=== PATIENT | male | born 1995 | race Caucasian/White ===

== ENCOUNTER 2017-07-06 01:03 | Emergency (ER) | payer OTHER, SELFPAY ==
--- NOTE | 2017-07-06 00:50 | CT_ITS ---
STUDY: CT BRAIN WITHOUT CONTRAST REASON FOR EXAM: Unknown, 22 years old. DIZZINESS TODAY WITH [place]NAN AND BLURRED VISION RADIATION DOSAGE (If Supplied By Facility): CTDIvol = ( 44.99 ) mGy, DLP = ( 745.49 ) mGycm TECHNIQUE: Transaxial CT imaging of the brain was performed without administration of intravenous contrast material. Individualized dose optimization techniques were used for this CT. COMPARISON: None. FINDINGS: Normal soft tissue structures. Normal calvarium. Normal size ventricles and extra-axial spaces for the patient's age. Normal white matter tracts of the cerebral hemispheres. Normal basal ganglia and thalami. Normal brainstem. Normal cerebellum. There is no intracranial hemorrhage. There are no findings of an acute ischemic infarction. There is a mucosal retention cyst in the right maxillary sinus. CT/Brain/Head without Contrast IMPRESSION: Normal unenhanced CT scan of the brain. Electronically Signed: Lou Plaza MD at 2:53 EDT Tel , Service support ,
[2017-07-06 02:45] LABS: Glucose 102 mg/dL (74-106)
[2017-07-06 02:46] LABS: Anion Gap 7 (5-15); BUN 11 mg/dL (7-18); BUN/Creat Ratio 10.3 RATIO (10-20); Calcium,Total 8.6 mg/dL (8.5-10.1); Chloride 107 mmol/L (98-107); Creatinine, Serum 1.07 mg/dL (0.70-1.30); EST Glomerular Filtration Rate 93 mL/min (>60); Est Glom Filt Rate - Afr Amer 113 mL/min (>60); Potassium 3.7 mmol/L (3.5-5.1); Sodium Level 141 mmol/L (136-145)
[2017-07-06 02:50] LABS: Absolute Neutrophil Count 5.8 X10^3/uL (2.0-7.7); Basophil# 0.03 X10^3/uL; Basophil% 0.3 % (0-1); Eosinophil# 0.29 X10^3/uL; Eosinophils% 3.2 % (0-5); Hematocrit 42.5 % (40-54); Hemoglobin 15.4 g/dl (13.0-16.5); Lymphocyte % 27.2 % (19-41); Mean Corp Hgb Conc 36.2 g/gl (32-36); Mean Corpuscular Hgb 30.5 pg (27.0-32.0); Mean Corpuscular Volume 84.2 fL (80-94); Mean Platelet Vol. 8.8 fl (6.2-12.0); Monocyte# 0.51 X10^3/uL; Monocyte% 5.6 % (0-10); Neutrophil # 5.83 X10^3/uL (2.7-7.7); Neutrophil % 63.5 % (47-70); POSITIVE COUNT NO; POSITIVE DIFFERENTIAL NO; POSITIVE MORPHOLOGY NO; Platelet Count 195 K/mm3 (150-450); RBC Distribution Width CV 12.7 % (11.6-14.6); RBC Distribution Width SD 38.2 fl (35.1-43.9); Red Blood Count 5.05 M/mm3 (4.6-6.2); White Blood Count 9.2 K/mm3 (4.4-11.0)
--- NOTE | 2017-07-06 03:01 | ED.RN ---
TRIAGE AND SECONDARY CHARTED ON DOWNTIME PAPER WORK.
--- NOTE | 2017-07-06 03:04 | ED.DCSUM_ITS ---
- ER Visit Summary Date of Service: 07/06/17 Chief Complaint: [Dizziness] History of Present Illness: The patient is a 22 M [who presents to the emergency department with dizziness. He describes it as room spinning when he lays back or sits up. It is associated with nausea. No chest pain or shortness of breath. No numbness or tingling. He did have a nosebleed a couple of days ago from the left nares he has been having nasal congestion. He is otherwise healthy and takes no medications. No fevers or chills. No head injuries. No numbness tingling or balance disturbances no ear pain] Physical Examination: [] Blood pressure slightly elevated other vitals within normal limits WN WD NAD PERRL EOMI MMM Serous otitis bilaterally Erythematous swollen nasal turbinates bilaterally Mild tenderness to palpation over the maxillary sinuses bilaterally NECK supple and nontender, no masses RRR no murmur rub or gallop, no peripheral edema, symmetric radial pulses CTAB no respiratory distress ABDOMEN is soft and nontender, normal bowel sounds, no distension, no rebound or guarding SKIN is warm and dry no rashes Alert and Oriented x3, CN II-XII in tact, no motor or sensory deficits, gait normal, [place] is positive to the right. There is mild horizontal nystagmus Patient is ambulatory without difficulty No lymphadenopathy Test Results: [] Emergency Department Course and Treatment: [Given fluids Valium meclizine and Zofran. He did improve while in the emergency department. Screening labs were unremarkable. CT of the head is pending. Feels improved. CT the head was unremarkable. He will be given Decadron here as well as meclizine and Zofran for home. He was given precautions for which to return and will follow up with his primary care doctor] Treatment Plan: [] Disposition: [Discharge] Impression: [Vertigo, sinus congestion] This note was generated with [employer] dictation software. It may contain incorrect words, spelling, and punctuation that were not noted in review of the chart prior to signing ED Disposition - Plan for ED Patient: Chief Complaint: Dizziness Referrals: Ron Grijalva DO [Primary Care Provider] -
--- NOTE | 2017-07-06 03:15 | ED.DEP ---
ED Disposition - Plan for ED Patient: Chief Complaint: Dizziness Instructions: ED Vertigo Unspecified, ED Sinusitis No Abx Prescriptions: Ondansetron [Zofran Odt] 4 mg PO Q8H PRN PRN #10 tablet PRN Reason: Nausea Meclizine HCl [Antivert] 25 mg PO 4X/DAY PRN PRN #20 tablet PRN Reason: Dizziness Referrals: Ron Grijalva DO [Primary Care Provider] - 3-5 Days
[2017-07-06 03:25] VITALS: BP 146/87; PULSE 66; RESP 18; O2SAT 98
[2017-07-06 03:26] VITALS: BMI 33.9
--- NOTE | 2017-07-06 03:26 | NURSING ---
see down time form
== END 2017-07-06 03:31 | disposition home or self-care (01) ==
LOC: ED 02:44
PROVIDERS: Emergency Provider Emergency Medicine; Family Provider Student in an Organized Health Care Education/Training Program; PCP Student in an Organized Health Care Education/Training Program
DX: R42 Dizziness and giddiness (principal); R09.81 Nasal congestion; H65.93 Unspecified nonsuppurative otitis media, bilateral
CPT/HCPCS: 70450; 80048; 85025; 99282; J7030; A4216

== ENCOUNTER 2019-06-16 20:24 | Emergency (ER) | payer OTHER, SELFPAY ==
[2019-06-16 20:24] VITALS: BP 129/72; PULSE 86; RESP 15; TEMP 36.6; O2SAT 99; BMI 29.4
--- NOTE | 2019-06-16 20:45 | RAD_ITS ---
STUDY: X-RAY - LEFT RADIUS AND ULNA REASON FOR EXAM: Male, 24 years old. FALL, WRIST PAIN/DEFORMITY TECHNIQUE: 2 view(s) of the forearm. COMPARISON: None. FINDINGS: Comminuted intra-articular fracture of the distal radius. Nondisplaced fracture of the ulnar styloid. Soft tissue swelling. Proximal radius and ulna are intact. RAD/Forearm 2 Views IMPRESSION: Comminuted intra-articular fracture of the distal radius. Electronically Signed: Mehran Aparicio MD at 22:00 EDT Tel , Service support ,
--- NOTE | 2019-06-16 20:45 | RAD_ITS ---
STUDY: X-RAY - LEFT WRIST REASON FOR EXAM: Male, 24 years old. FALL, WRIST PAIN/DEFORMITY TECHNIQUE: 3 view(s) of the wrist were obtained. COMPARISON: None. FINDINGS: Comminuted intra-articular fracture of the distal radius. Fracture of the ulnar styloid. Carpal rows are normally aligned. Soft tissue swelling. RAD/Wrist min 3 Views IMPRESSION: Comminuted intra-articular fracture of the distal radius. Fracture of the ulnar styloid. Electronically Signed: Mehran Aparicio MD at 21:58 EDT Tel , Service support ,
--- NOTE | 2019-06-16 20:47 | ED.DCSUM_ITS ---
History of Present Illness Chief Complaint: Upper Extremity Injury Informant: Patient Occurred: Today Mechanism/Context: Fall Onset: Today Context: Sudden Onset Timing: Continuous Quality of Pain: Sharp Narrative: Patient is a 24-year-old male no past medical history presenting with left wrist deformity and pain. Patient was skateboarding when he fell and caught himself with his left hand. He had immediate pain. He did not hit his head. He had no loss of consciousness. No other injuries. Does not have an orthopedist. States he is never broken a bone. This happened just prior to arrival. No radiation of pain. Pain is severe. Did not take anything for pain prior to arrival. No associated numbness or tingling. Patient also landed on his left knee and sustained an abrasion. Past Medical History - Allergies and Home Meds Allergies/Adverse Reactions: Allergies No Known Allergies Allergy (Verified 06/16/19 20:27) Primary Care Physician: Ron Grijalva DO [Primary Care Provider] - Past Medical History: None Surgical History: no surgical history Smoking Status: Never smoker Review of Systems General: Denies: Chills, Fever, Sweats Eyes: Denies: Visual changes - bilaterally, Diplopia ENT: Denies: Rhinorrhea, Sore throat Cardiovascular: Denies: Chest pain, Palpitations Respiratory: Denies: Dyspnea, Cough, Dyspnea on exertion Gastrointestinal: Denies: Abdominal pain, Nausea, Vomiting, Diarrhea, Melena, Hematochezia Genitourinary: Denies: Dysuria, Hematuria, Frequency Musculoskeletal: Reports: Extremity Pain - left wrist . Denies: Back pain Skin: Reports: Abrasions - left knee . Denies: Rash, Wounds Neurological: Denies: Headache, Weakness, Numbness Physical Exam Vital Signs/Narrative: Vital Signs Temp Pulse Resp BP Pulse Ox 06/16/19 20:24 97.9 F 86 15 129/72 H 99 Lower extremities: normal range of motion, no effusions, normal range of motion Inital Vital Signs reviewed: Yes Left Shoulder: Negative for: Deformity, Hematoma, Limited ROM Left Humerus: Negative for: Deformity, Edema, Hematoma, Limited ROM Left Elbow: Negative for: Deformity, Edema, Hematoma, Limited ROM Left Forearm: Deformity - distal/radial aspect, Edema, Limited ROM, - - Tendereness to palpation of the distal radius. Negative for: Abrasion, Contusion, Hematoma Left Wrist: Deformity, Edema, Limited ROM. Negative for: Abrasion, Contusion, Hematoma Left Hand: Negative for: Deformity, Edema, Hematoma, Limited ROM Left Finger: Negative for: Limited ROM General: Well nourished, Well developed Head: Normocephalic, Atraumatic Eyes: Perrl, EOMI ENT: No Trauma, Moist Mucous Membranes Neck: Nontender, Full ROM Cardiovascular: Regular rate, Regular rhythm, No murmurs Respiratory: No distress, CTA bilaterally, Chest nontender Back: Nontender Skin: Normal color, No rash, Trauma - 3 cm superficial circumferential abrasion to the left lateral knee Neurological: Alert, Oriented x3, Cranial nerves II-XII grossly intact, Normal Strength, Normal Sensation Psychological: Normal affect Diagnostic/Tx/Re-eval Clinical Impression(s) from Imaging Studies Forearm X-Ray 06/16/19 20:45 IMPRESSION: Comminuted intra-articular fracture of the distal radius. Electronically Signed: Mehran Aparicio MD at 22:00 EDT Tel , Service support , Wrist X-Ray 06/16/19 20:45 IMPRESSION: Comminuted intra-articular fracture of the distal radius. Fracture of the ulnar styloid. Electronically Signed: Mehran Aparicio MD at 21:58 EDT Tel , Service support , - Medical Decision Making Patient has a closed fracture of his left distal radius and ulnar styloid process. He has an obvious deformity. He is given IM morphine for pain control. X-ray confirms fracture. Reduction performed and fabricated splinting with Ortho-Glass. See procedure note. Case discussed with orthopedics on-call who is agreeable with outpatient follow-up. Patient discharged home with a short course of [place] for pain control. He is also tried to take ibuprofen as needed. He is counseled on splint care. Patient is counseled on signs and symptoms requiring return to the emergency room. Patient verbalizes agreement and understand this plan. Patient discharged home in stable and improved condition. Procedures Procedure(s): Closed reduction. Informed consent obtained verbally. Patient neuro vastly intact. Hematoma block performed using sterile technique with chlorhexidine, 22-gauge needle and 10 cc of 0.5% bupivacaine. Patient placed in finger traction 15 minutes prior to procedure. C arm used to help guide procedure. Close reduction using traction/countertraction and dorsal pressure used for reduction. Satisfactory reduction obtained. Patient neurovascular intact with brisk capillary refill distally. He is placed in a sugar tong splint. Patient tolerated procedure well with no immediate complications. ED Disposition - Plan for ED Patient: Disposition: Home or Assisted Living Diagnosis: Closed fracture of left distal radius, Closed fracture of styloid process of left ulna Instructions: ED Fx Colles Wrist Redu Requ Prescriptions: Hydrocodone Bitart/Apap 5-325 [[place] 5MG-325MG] 1 tab PO Q6H PRN PRN 3 Days #12 tab PRN Reason: Pain Prescription Printed Referrals: Ron Grijalva DO [Primary Care Provider] - Theodore Irvin DO [STAFF PHYSICIAN] -
[2019-06-16] MEDS: Morphine 4 MG/ML Syringe IV (21:34)
--- NOTE | 2019-06-16 22:13 | RAD_ITS ---
STUDY: X-RAY - LEFT WRIST REASON FOR EXAM: Male, 24 years old. REDUCTION LEFT WRIST FX TECHNIQUE: 3 view(s) of the wrist were obtained. COMPARISON: None. FINDINGS: 3 intraoperative images demonstrate interval reduction of comminuted intra-articular distal radial fracture. Nondisplaced ulnar styloid fracture. RAD/Wrist min 3 Views IMPRESSION: As above. Electronically Signed: Mehran Aparicio MD at 23:25 EDT Tel , Service support ,
[2019-06-16] MEDS: Bupivacaine 0.5% PF 10 ML VIAL INTRAARTIC (22:41)
[2019-06-16 22:43] VITALS: BP 110/70; RESP 67; TEMP -8.8; TEMP 16; O2SAT 99
== END 2019-06-16 22:44 | disposition home or self-care (01) ==
PROVIDERS: Emergency Provider Emergency Medicine; PCP Student in an Organized Health Care Education/Training Program
DX: S52.572A Other intraarticular fracture of lower end of left radius, initial encounter for closed fracture (principal); S52.612A Displaced fracture of left ulna styloid process, initial encounter for closed fracture; S80.212A Abrasion, left knee, initial encounter; V00.131A Fall from skateboard, initial encounter; Y93.51 Activity, roller skating (inline) and skateboarding; Y92.9 Unspecified place or not applicable
CPT/HCPCS: 25605; 73090; 73110; 76000; 96374; 99283; A4216

== ENCOUNTER → 2019-06-20 14:05 | Outpatient (CLI) | payer OTHER, SELFPAY ==
[2019-06-16 20:24] VITALS: BMI 29.4
--- NOTE | 2019-06-20 14:09 | CT_ITS ---
STUDY: CT SCAN forearm LEFT REASON FOR EXAM: Male, 24 years old. SKATEBOARDING ACCIDENT 06/16/19 RADIATION DOSAGE (If Supplied By Facility): CTDIvol = ( 12.13 ) mGy, DLP = ( 411.91 ) mGycm. Individualized dose optimization techniques were used for this CT.? TECHNIQUE: Multiple axial tomographic images of the forearm were obtained without intravenous contrast administration. Coronal and sagittal reconstructions were obtained as well. COMPARISON: Comparison is made with prior radiographs dated June 16, 2019. FINDINGS: There is evidence of a comminuted nondisplaced fracture of the distal radial metaphysis with extension to the articular surface. There is good alignment. Avulsion fracture of the ulnar styloid. Soft tissue swelling. CT/Extremity Upper without Contra IMPRESSION: Nondisplaced, fracture of the distal radial metaphysis with extension to the articular surface. Avulsion fracture of the ulnar styloid. Soft tissue swelling. Electronically Signed: Alberto Love, at 15:38 EDT , Service support ,
== END ==
PROVIDERS: PCP Student in an Organized Health Care Education/Training Program; Referring Provider Orthopaedic Surgery Hand Surgery; Visit Provider Orthopaedic Surgery Hand Surgery
DX: S52.572A Other intraarticular fracture of lower end of left radius, initial encounter for closed fracture (principal)
CPT/HCPCS: 73200

== ENCOUNTER 2019-08-29 09:30 | Outpatient (RCR) | payer OTHER, SELFPAY ==
--- NOTE | 2019-07-26 17:38 | HP.OTEVAL ---
Patient's Visit Information PITA ESPINOSA is a 24 year old M, referred to Occupational Therapy by Dr. Seamus Moura MD, with a diagnosis of other intraarticular fx lower lt radius. Date of Evaluation: 07/26/19 Occupational Therapist: Adriana William - Subjective Pt seen for initial occupational therapy evaluation for intraarticular fx lower Lt radius 06/16/19 that occurred when fell skateboarding. Pt had ORIF sx L wrist 06/27/19. Pt now wearing wrist splint from last s appointment 07/17/19, wearing splint states all the time other than to complete ROM and showering. Pt right hand dominent. Pt indep w/ BADL/IADL tasks. Pt works at [employer] having to lift heavy objects several times a time but is not working right now. - Objective limited ROM L wrist - ROM Wrist: R 55'/79', L 34'/10' ROM Comments: able to make composite fist L UE and touch each finger to thumb independently L UE - Strength Trimmer Tailer: R 90#, L DNT Lateral Pinch: R 11#, L DNT Tripod Pinch: R 9#, L DNT - Edema Other: Slight edema L wrist - Sensation Sensation Comments: No numbness or tingling - Quick DASH-Disab of Arm,Shoulder& Hand Quick DASH Score: 40.9075 - Goals Goal:: Pt will progress w/ L UE photoengraving finisher strength to 75# to assist w/ functional living tasks when appropriate. Goal:: Pt will progress w/ AROM L wrist flexion by 60' and extension by 20' to assist w/ IADL tasks independently by d/c from OT services. Goal:: Pt will demo no pain greater than 1/10 with movement L UE by d/c from OT Goal:: Pt will be educated on scar mngmt with good understanding and demo 75%x Goal:: Pt will be educated on joint protection with returning back to work tasks with good understanding and demo 75%x Goal:: Pt will be educated on L UE HEP with good understanding and demo 75%x - Rehabilitation General Assessment: Pt seen for initial occupational therapy evaluation for intraarticular fx lower Lt radius June 15 that occurred when fell skateboarding. Pt had ORIF sx L wrist June 26. Pt demo limited ROM and strength L wrist/hand. Pt would benefit from direct OT services to increase his indep w/ L UE wrist ROM, L UE strength, educate on L UE HEP and scar mngmt techniques to increase pts independence and ability to return back to work 2-3x/wk x 4wks Rehabilitation Potential: Excellent - Anticipated Interventions A/AAROM/PROM, Strengthening, Edema Control, Scar Care, Modalities, Orthoses, Education re Diagnosis, Education re Self-Bandaging Techniques, Education re Skin Care and Precautions, Education re Self Massage Techniques, Education re Correct Donning Tech,Care&Wearing Sched Comp Garments, Home Program - Visit Plan Frequency: 2-3x /Week Duration: 4 Weeks General Plan: increase LUE wrist ROM, strength, educate on scar mngmt, LUE HEP and minimize pain w/ movment to increase pts quality of life and return back to PLOF. TEXT: Thank you for the opportunity to evaluate your patient. For Medicare and Medicare HMO plans, please review the plan of care and approve it. It will need to be FAXED BACK to us at [phone] for Medicare purposes. Please let me know if there are questions or concerns regarding this plan of care. Physician Signature: Date:
--- NOTE | 2019-08-07 10:31 | OTREVAL_ITS ---
Dr. Seamus Moura MD, It has been my pleasure to treat PITA ESPINOSA over the last 4 visits for other intraarticular fx lower lt radius. Please see the progress note below for an update on the occupational therapy plan of care! Subjective: Pt arrived wearing splint. Pt states CMC pain has went away. No pain at this time. 6 weeks on August 07,. appt this the for review. Objective/Function: Before:wrist 43/45. sup 62. After: wrist 47/ 47. Sup 71. pt making good gains with ROM pt will be 6 weeks s/p 08/07/09 will initinate PRE as pt anali. unless otherwise instructed by ortho. Plan Frequency: 2-3x /Week Duration: 4 Weeks Plan: cont POC take measurements before and after Goals - Goals Patient Goals: Regain Strength, Decrease Pain, Return to Work, Decrease Swelling/Stiffness, Use Hand/Wrist/Arm Normally Again, Increase ROM, Be More Independent in ADLS, Resume Former Household Responsibilities (Cooking,Cleaning,Yard, etc.), Resume Hobbies Goal:: Pt will progress w/ L UE shipping receiving clerk strength to 75# to assist w/ functional living tasks when appropriate. Goal:: Pt will progress w/ AROM L wrist flexion by 60' and extension by 20' to assist w/ IADL tasks independently by d/c from OT services. Goal:: Pt will demo no pain greater than 1/10 with movement L UE by d/c from OT Goal:: Pt will be educated on scar mngmt with good understanding and demo 75%x Goal:: Pt will be educated on joint protection with returning back to work tasks with good understanding and demo 75%x Goal:: Pt will be educated on L UE HEP with good understanding and demo 75%x Anticipated Interventions Anticipated Interventions: A/AAROM/PROM, Strengthening, Edema Control, Scar Care, Modalities, Orthoses, Education re Diagnosis, Education re Self-Bandaging Techniques, Education re Skin Care and Precautions, Education re Self Massage Techniques, Education re Correct Donning Tech,Care&Wearing Sched Comp Garments, Home Program Please do not hesitate to contact me at [phone] by phone or if you have questions or concerns regarding this new plan of care! Sincerely, Marbella Rogers OTR/L, CHT
--- NOTE | 2019-08-29 14:24 | HP.OTDCSUM ---
It has been my pleasure to treat PITA ESPINOSA under orders from Dr. Seamus Moura MD, for the diagnosis of other intraarticular fx lower lt radius for a total of 11 visit(s). Please see the following information for a summary of their discharge status. % Improvement: 85 Objective/Function: left vice president of engineering strength 90#. right is 105#. left lateral pinch 18#. left tripod pinch 15#. left tip pinch 12#. left wrist ROM 65/40. left forearm supination 65*. right forearm supination 85*. pt demo functional ROM and strength to cont. with HEP Patient Goals: Regain Strength, Decrease Pain, Return to Work, Decrease Swelling/Stiffness, Use Hand/Wrist/Arm Normally Again, Increase ROM, Be More Independent in ADLS, Resume Former Household Responsibilities (Cooking,Cleaning,Yard, etc.), Resume Hobbies Goal:: Pt will progress w/ L UE vice president of engineering strength to 75# to assist w/ functional living tasks when appropriate. Goal:: Pt will progress w/ AROM L wrist flexion by 60' and extension by 20' to assist w/ IADL tasks independently by d/c from OT services. Goal:: Pt will demo no pain greater than 1/10 with movement L UE by d/c from OT Goal:: Pt will be educated on scar mngmt with good understanding and demo 75%x Goal:: Pt will be educated on joint protection with returning back to work tasks with good understanding and demo 75%x Goal:: Pt will be educated on L UE HEP with good understanding and demo 75%x Plan: D/C with HEP Discharge Comments: pt has progressed well with his ROM and strength following his ORIF. Pt reports ind with ADLs and IADLs. Therapy has advised pt to cont with his stretching and strengthening programs. pt demo understanding and agrees with POC. If there are questions or concerns regarding this patient's occupational therapy, please fell free to call me at [phone]. Thank you for the referral of this patient. Sincerely, Marbella Rogers, OTR/L, CHT
== END 2019-08-29 19:00 | disposition home or self-care (01) ==
LOC: OT 09:30
PROVIDERS: PCP Student in an Organized Health Care Education/Training Program; Referring Provider Orthopaedic Surgery Hand Surgery; Visit Provider Orthopaedic Surgery Hand Surgery
DX: S52.572D Other intraarticular fracture of lower end of left radius, subsequent encounter for closed fracture with routine healing (principal)
CPT/HCPCS: 97110; 97165; 97166; 97530